=== PATIENT | female | born 1970 | race African-American/Black ===

== ENCOUNTER 2017-12-28 12:15 | Inpatient (IN) | payer BC ==
[~2017-12-28] VITALS: Ht 165.1 cm; Wt 72.5 kg
[2017-12-28] MEDS ORDERED: IOHEXOL 350 MG/ML 50 ML BTL (for RAD DIAG) IVCONTRAST ONE (12:16)
[2017-12-28 12:19] VITALS: BP 119/73; PULSE 84; RESP 18; TEMP 98.4; O2SAT 100
[2017-12-28 12:28] VITALS: BP 126/75; PULSE 81; RESP 16; O2SAT 99
[2017-12-28] MEDS ORDERED: OMEP20TA93 PO (12:32)
[2017-12-28] MEDS ORDERED: SODIUM CHLOR 0.9% 1000 ML INJ 1,000 ML IV SCH (12:41)
[2017-12-28] MEDS ORDERED: SODIUM CHLORIDE 0.9% FLUSH 10 ML FLUSH IV FLUSH PRN ×2 (12:45→17:15)
[2017-12-28] MEDS ORDERED: ONDANSETRON HCL 4 MG/2 ML VIAL IVP ONE (12:45)
[2017-12-28] MEDS ORDERED: FAMOTIDINE 20 MG/2 ML VIAL IV PUSH ONE (12:45)
[2017-12-28] MEDS ORDERED: MORPHINE SULFATE 4 MG/ML INJ IV PUSH ONE ×2 (12:45→22:30)
--- NOTE | 2017-12-28 12:46 | PD ---
HPI Chief Complaint: GI Complaint Time Seen by Provider: 12:22 Travel History International Travel<30 days: No Contact w/Intl Traveler<30days: No Traveled to known affect area: No History of Present Illness HPI The patient is a 47-year-old female who presents to the emergency department for abdominal pain. The patient states her abdominal pain started in August, is located epigastric to left upper quadrant, nonradiating, intermittent, and sharp. She does note nausea, vomiting, and 2 days ago started having green diarrhea. The patient does note a 60 pound weight loss over the last year and a half, initially was intentional, recently has been unintentional. She denies any history of previous abdominal surgeries. The patient states she has not had her menstrual cycle in approximately 15 years, but denies any known history of uterine ablation or hysterectomy. The patient denies any dysuria, frequency, or urgency. The patient does have a history of alcohol use, drinks several times a week, but denies any known history of pancreatitis. Symptoms are moderate. The patient does not currently have a primary physician. PFSH Past Medical History Asthma: Yes Diminished Hearing: No GERD: Yes Immunizations Current: Yes Tetanus Vaccination: Unknown Influenza Vaccination: No ?: Not Menopausal: Yes : 10 Para: 5 Miscarriage: 1 : 4 Past Surgical History Surgical History: No Previous Surgery Social History Alcohol Use: Yes Tobacco Use: No (quit ) Substance Use: Yes (Marijuana last use today ) Allergies-Medications (Allergen,Severity, Reaction): Coded Allergies: No Known Drug Allergies (Verified Allergy, Unknown, 12/28/17) Reported Meds & Prescriptions Reported Meds & Active Scripts Active Reported Omeprazole 20 Mg Tab 20 Mg PO DAILY Review of Systems Except as stated in HPI: all other systems reviewed are Neg General / Constitutional: No: Fever Cardiovascular: No: Chest Pain or Discomfort Respiratory: No: Shortness of Breath Gastrointestinal: Positive: Nausea, Vomiting, Diarrhea, Abdominal Pain Genitourinary: No: Dysuria, Discharge, Vaginal Bleeding Musculoskeletal: No: Myalgias Skin: No Rash Physical Exam Narrative GENERAL: Awake, alert, pleasant 47-year-old female who appears her stated age and is in no acute respiratory distress SKIN: Focused skin assessment warm/dry. HEAD: Atraumatic. Normocephalic. EYES: No injection or drainage. ENT: No nasal bleeding or discharge. Mucous membranes pink and moist. NECK: Trachea midline. No JVD. CARDIOVASCULAR: Regular rate and rhythm. No murmur appreciated. RESPIRATORY: No accessory muscle use. Clear to auscultation. Breath sounds equal bilaterally. GASTROINTESTINAL: Abdomen soft, tender palpation epigastrium and left upper quadrant. No guarding or rigidity. MUSCULOSKELETAL: No obvious deformities. No clubbing. No cyanosis. No edema. NEUROLOGICAL: Awake and alert. No obvious cranial nerve deficits. Motor grossly within normal limits. Normal speech. Nonfocal. PSYCHIATRIC: Appropriate mood and affect; insight and judgment normal. Data Data Last Documented VS Vital Signs Date Time Temp Pulse Resp B/P (MAP) Pulse Ox O2 Delivery O2 Flow Rate FiO2 12/28/17 12:28 81 16 126/75 (92) 99 Room Air 12/28/17 12:19 98.4 Orders Orders Complete Blood Count With Diff (12/28/17 12:41) Comprehensive Metabolic Panel (12/28/17 12:41) Lipase (12/28/17 12:41) Lactic Acid (12/28/17 12:41) Urinalysis - C+S If Indicated (12/28/17 12:41) Ct Abd/Pel W Iv Contrast(Rout) (12/28/17 12:41) Iv Access Insert/Monitor (12/28/17 12:41) Ecg Monitoring (12/28/17 12:41) Oximetry (12/28/17 12:41) Morphine Inj (Morphine Inj) (12/28/17 12:45) Ondansetron Inj (Zofran Inj) (12/28/17 12:45) Sodium Chlor 0.9% 1000 Ml Inj (Ns 1000 M (12/28/17 12:41) Sodium Chloride 0.9% Flush (Ns Flush) (12/28/17 12:45) Famotidine Inj (Pepcid Inj) (12/28/17 12:45) Ed Urine Pregnancytest Poc (12/28/17 12:41) Oral Contrast - Adult (12/28/17 12:47) Diatrizoate Liq ( Gastroview Liq) (12/28/17 13:06) Iohexol 350 Inj (Omnipaque 350 Inj) (12/28/17 12:16) Consult General Surgery (12/28/17 ) Admit Order (Ed Use Only) (12/28/17 ) Labs Laboratory Tests Test 12/28/17 13:05 12/28/17 13:07 12/28/17 14:45 White Blood Count 10.9 TH/MM3 Red Blood Count 4.57 MIL/MM3 Hemoglobin 14.1 GM/DL Hematocrit 41.9 % Mean Corpuscular Volume 91.8 FL Mean Corpuscular Hemoglobin 30.9 PG Mean Corpuscular Hemoglobin Concent 33.7 % Red Cell Distribution Width 13.5 % Platelet Count 202 TH/MM3 Mean Platelet Volume 9.6 FL Neutrophils (%) (Auto) 81.5 % Lymphocytes (%) (Auto) 11.9 % Monocytes (%) (Auto) 5.7 % Eosinophils (%) (Auto) 0.4 % Basophils (%) (Auto) 0.5 % Neutrophils # (Auto) 8.9 TH/MM3 Lymphocytes # (Auto) 1.3 TH/MM3 Monocytes # (Auto) 0.6 TH/MM3 Eosinophils # (Auto) 0.0 TH/MM3 Basophils # (Auto) 0.1 TH/MM3 CBC Comment DIFF FINAL Differential Comment Blood Urea Nitrogen 13 MG/DL Creatinine 0.79 MG/DL Random Glucose 95 MG/DL Total Protein 7.8 GM/DL Albumin 4.0 GM/DL Calcium Level 9.4 MG/DL Alkaline Phosphatase 69 U/L Aspartate Amino Transf (AST/SGOT) 23 U/L Alanine Aminotransferase (ALT/SGPT) 24 U/L Total Bilirubin 0.4 MG/DL Sodium Level 139 MEQ/L Potassium Level 4.2 MEQ/L Chloride Level 107 MEQ/L Carbon Dioxide Level 23.4 MEQ/L Anion Gap 9 MEQ/L Estimat Glomerular Filtration Rate 95 ML/MIN Lipase 116 U/L Lactic Acid Level 1.4 mmol/L Urine Color YELLOW Urine Turbidity CLEAR Urine pH 6.0 Urine Specific [place] 1.025 Urine Protein TRACE mg/dL Urine Glucose (UA) NEG mg/dL Urine Ketones 10 mg/dL Urine Occult Blood SMALL Urine Nitrite NEG Urine Bilirubin NEG Urine Urobilinogen LESS THAN 2.0 MG/DL Urine Leukocyte Esterase NEG Urine RBC 6 /hpf Urine WBC LESS THAN 1 /hpf Urine Squamous Epithelial Cells 2 /hpf Urine Mucus FEW /lpf Microscopic Urinalysis Comment CULT NOT INDICATED MDM Medical Decision Making Medical Screen Exam Complete: Yes Emergency Medical Condition: Yes Medical Record Reviewed: Yes Interpretation(s) Last Impressions Abdomen/Pelvis CT 12/28/17 1241 Signed Impressions: Service Date/Time: Thursday, December 28, 2017 15:14 - CONCLUSION: Probable early acute appendicitis. Recommend correlation with physical exam and laboratory values. Rob Amato MD Laboratory Tests Test 12/28/17 13:05 12/28/17 13:07 12/28/17 14:45 White Blood Count 10.9 TH/MM3 Red Blood Count 4.57 MIL/MM3 Hemoglobin 14.1 GM/DL Hematocrit 41.9 % Mean Corpuscular Volume 91.8 FL Mean Corpuscular Hemoglobin 30.9 PG Mean Corpuscular Hemoglobin Concent 33.7 % Red Cell Distribution Width 13.5 % Platelet Count 202 TH/MM3 Mean Platelet Volume 9.6 FL Neutrophils (%) (Auto) 81.5 % Lymphocytes (%) (Auto) 11.9 % Monocytes (%) (Auto) 5.7 % Eosinophils (%) (Auto) 0.4 % Basophils (%) (Auto) 0.5 % Neutrophils # (Auto) 8.9 TH/MM3 Lymphocytes # (Auto) 1.3 TH/MM3 Monocytes # (Auto) 0.6 TH/MM3 Eosinophils # (Auto) 0.0 TH/MM3 Basophils # (Auto) 0.1 TH/MM3 CBC Comment DIFF FINAL Differential Comment Blood Urea Nitrogen 13 MG/DL Creatinine 0.79 MG/DL Random Glucose 95 MG/DL Total Protein 7.8 GM/DL Albumin 4.0 GM/DL Calcium Level 9.4 MG/DL Alkaline Phosphatase 69 U/L Aspartate Amino Transf (AST/SGOT) 23 U/L Alanine Aminotransferase (ALT/SGPT) 24 U/L Total Bilirubin 0.4 MG/DL Sodium Level 139 MEQ/L Potassium Level 4.2 MEQ/L Chloride Level 107 MEQ/L Carbon Dioxide Level 23.4 MEQ/L Anion Gap 9 MEQ/L Estimat Glomerular Filtration Rate 95 ML/MIN Lipase 116 U/L Lactic Acid Level 1.4 mmol/L Urine Color YELLOW Urine Turbidity CLEAR Urine pH 6.0 Urine Specific [place] 1.025 Urine Protein TRACE mg/dL Urine Glucose (UA) NEG mg/dL Urine Ketones 10 mg/dL Urine Occult Blood SMALL Urine Nitrite NEG Urine Bilirubin NEG Urine Urobilinogen LESS THAN 2.0 MG/DL Urine Leukocyte Esterase NEG Urine RBC 6 /hpf Urine WBC LESS THAN 1 /hpf Urine Squamous Epithelial Cells 2 /hpf Urine Mucus FEW /lpf Microscopic Urinalysis Comment CULT NOT INDICATED Differential Diagnosis Differential diagnosis includes pancreatitis, SMA nutcracker syndrome, SMA insufficiency, ischemic colitis, gastritis, peptic ulcer disease, cancer. Narrative Course IV was established, labs are drawn and sent, and the patient was placed on cardiac telemetry monitoring and continuous pulse oximetry monitoring. The patient was administered morphine, Zofran, Pepcid, and IV fluids. CT of the abdomen and pelvis with IV and oral contrast was ordered. The patient's white count is unremarkable. Lactic acid is normal. However, the patient did vomit after drinking oral contrast. CT the abdomen and pelvis reveals possible early appendicitis. The patient's history is not consistent with appendicitis, however, the abdomen was reevaluated. She complains of pain in the left upper quadrant, however, is only tender to palpation right lower quadrant. Appears to be very atypical appendicitis if appendicitis at all. However, with constellation of symptoms and CT results, the on-call general surgeon was paged. I discussed the patient with Dr. Arita who evaluated the CT, does state the appendix is enlarged but there are no inflammatory changes. The patient's pain is not consistent with appendicitis, it appears chronic and associated with a 60 pound weight loss. The patient most likely would benefit from endoscopy and possibly colonoscopy. I discussed the patient with the on-call medical service who agrees with 23 hour observation. Physician Communication Physician Communication I discussed the patient with Dr. Piedra who agrees with 23 hour observation. Diagnosis Primary Impression: Abdominal pain Qualified Codes: R10.10 - Upper abdominal pain, unspecified Admitting Information Admitting Physician Requests: Observation Condition: Stable Reese Torres MD December 28, 2017 12:46
[2017-12-28] MEDS ORDERED: DIATRIZOATE MEGLUM/DIATRIZOATE SOD 9 ML CUP ONE (13:06)
[2017-12-28 13:15] LABS: AUTOMATED NEUTROPHIL # 8.9 TH/MM3 (1.8-7.7); BASOPHIL # 0.1 TH/MM3 (0-0.2); BASOPHIL % 0.5 % (0.0-2.0); EOSINOPHIL % 0.4 % (0.0-4.0); HEMATOCRIT 41.9 % (35.0-46.0); HEMOGLOBIN 14.1 GM/DL (11.6-15.3); LYMPH % 11.9 % (9.0-44.0); LYMPHOCYTE # 1.3 TH/MM3 (1.0-4.8); MEAN CELL VOLUME 91.8 FL (80.0-100.0); MEAN CORPUSCULAR HEMOGLOBIN 30.9 PG (27.0-34.0); MEAN CORPUSCULAR HGB CONC 33.7 % (32.0-36.0); MEAN PLATELET VOLUME 9.6 FL (7.0-11.0); MONO % 5.7 % (0.0-8.0); MONOCYTE # 0.6 TH/MM3 (0-0.9); NEUT % 81.5 % (16.0-70.0); PLATELET COUNT 202 TH/MM3 (150-450); RED BLOOD COUNT 4.57 MIL/MM3 (4.00-5.30); RED CELL DISTRIBUTION WIDTH 13.5 % (11.6-17.2); WHITE BLOOD COUNT 10.9 TH/MM3 (4.0-11.0)
[2017-12-28 13:34] LABS: ALKALINE PHOSPHATASE 69 U/L (45-117); ALT (GPT) 24 U/L (10-53); TOTAL BILIRUBIN ADULT 0.4 MG/DL (0.2-1.0); TOTAL PROTEIN 7.8 GM/DL (6.4-8.2)
[2017-12-28 13:42] LABS: AST (GOT) 23 U/L (15-37); BICARBONATE 23.4 MEQ/L (21.0-32.0); BLOOD UREA NITROGEN 13 MG/DL (7-18); CALCIUM 9.4 MG/DL (8.5-10.1); CHLORIDE 107 MEQ/L (98-107); CREATININE 0.79 MG/DL (0.50-1.00); GLOMERULAR FILTRATION RATE 95 ML/MIN (>89); GLUCOSE,RANDOM 95 MG/DL (74-106); SODIUM (NA) 139 MEQ/L (136-145)
--- NOTE | 2017-12-28 15:34 | RADRPT ---
EXAM DATE/TIME: 12/28/2017 15:14 [facility] COMPARISON: No previous studies available for comparison. INDICATIONS : Severe abdominal pain to left upper quadrant. IV CONTRAST: 94 cc Omnipaque 350 (iohexol) IV ORAL CONTRAST: Prescribed oral contrast ingested. RADIATION DOSE: 11.95 CTDIvol (mGy) MEDICAL HISTORY : asthma, gerd SURGICAL HISTORY : None. ENCOUNTER: Initial ACUITY: 1 day PAIN SCALE: 9/10 LOCATION: Left upper quadrant abdomen TECHNIQUE: Volumetric scanning of the abdomen and pelvis was performed. Using automated exposure control and ad justment of the mA and/or kV according to patient size, radiation dose was kept as low as reasonably achievable to obtain optimal diagnostic quality images. DICOM format image data is available electro nically for review and comparison. FINDINGS: LOWER LUNGS: The visualized lower lungs are clear. LIVER: Homogeneous density without lesion. There is no dilation of the biliary tree. No calcified gallston es. SPLEEN: Normal size without lesion. PANCREAS: Within normal limits. KIDNEYS: Normal in size and shape. There is no mass, stone or hydronephrosis. ADRENAL GLANDS: Within normal limits. VASCULAR: There is no aortic aneurysm. BOWEL/MESENTERY: The appendix is dilated at 1.3 cm. There is some thickening involving the wall the appendix with some mild inflammatory changes in the surrounding mesenteric fat. No free air is seen. No loculated fluid collections are demonstrated. No free fluid is seen. ABDOMINAL WALL: Within normal limits. RETROPERITONEUM: There is no lymphadenopathy. BLADDER: No wall thickening or mass. REPRODUCTIVE: Within normal limits. INGUINAL: There is no lymphadenopathy or hernia. MUSCULOSKELETAL: Within normal limits for patient age. CONCLUSION: Probable early acute appendicitis. Recommend correlation with physical exam and laboratory values. Rob Amato MD on December 28, 2017 at 15:28 Board Certified Radiologist. This report was verified electronically.
[2017-12-28 15:50] LABS: BILIRUBIN, URINE NEG (NEG); BLOOD, URINE SMALL (NEG); GLUCOSE,URINE NEG (NEG); KETONE, URINE 10 mg/dL (NEG); MUCUS URINE FEW /lpf (OCC); NITRITE,URINE NEG (NEG); SQUAMOUS EPITHELIAL CELL URINE 2 /hpf (0-5); URINE COLOR YELLOW (YELLW/STRAW); URINE LEUKOCYTE ESTERASE NEG (NEG)
[2017-12-28] MEDS ORDERED: ONDANSETRON HCL 4 MG/2 ML VIAL IVP PRN (17:15)
[2017-12-28] MEDS ORDERED: NALOXONE HCL 0.4 MG/ML AMP IV PUSH PRN (17:15)
[2017-12-28] MEDS ORDERED: ACETAMINOPHEN/HYDROcodone 325 MG/5 MG TAB PO PRN (17:15)
--- NOTE | 2017-12-28 17:24 | HHI.HP ---
[facility] No Primary Care Physician Admission Diagnosis Abdominal pain with 60 pound weight loss, nausea vomiting Diagnoses: (1) Abdominal pain Travel History International Travel<30 Days: No Contact w/Intl Traveler <30 Da: No Traveled to Known Affected Are: No History of Present Illness 47-year-old female with a 1.5 year history of recurrent abdominal pain. She states that the pain began early as episodic epigastric pain that was associated at times with eating. It progressed over the year to involve vomiting with meals occasionally. She has lost 60 pounds in the last year and a half due to poor eating habits. She denies any hematochezia but does state that she has episodic diarrhea. For the last 3 days she has noticed green stools and has been battling with nausea, vomiting, diarrhea and worsening abdominal pain. She has no known food allergies. She denies any fevers. Review of Systems Constitutional: DENIES: Diaphoretic episodes, Fatigue, Fever, Weight gain, Weight loss, Chills Endocrine: DENIES: Abnorml menstrual pattern Eyes: DENIES: Blurred vision, Eye inflammation, Eye pain, Vision loss, Photosensitivity Respiratory: DENIES: Apneas, Cough, Wheezing, Hemoptysis Cardiovascular: DENIES: Chest pain, Palpitations, Syncope, Dyspnea on Exertion , Lower Extremity Edema Gastrointestinal: COMPLAINS OF: Abdominal pain, Diarrhea, Nausea, Vomiting, DENIES: Black stools, Bloody stools, Constipation, Difficulty Swallowing Genitourinary: DENIES: Abnormal vaginal bleeding, Dysmenorrhea, Dyspareunia, Urinary frequency, Urinary incontinence, Urgency, Dysuria Neurologic: DENIES: Abnormal gait, Seizures, Poor Balance Psychiatric: DENIES: Anxiety, Confusion, Mood changes, Depression, Hallucinations, Agitation Past Family Social History Past Medical History Asthma Past Surgical History Denies any surgeries Allergies: Coded Allergies: No Known Drug Allergies (Verified Allergy, Unknown, 12/28/17) Family History Hypertension Social History Drinks 8 cans of beer twice weekly Denies cigarette use Occasional marijuana use Physical Exam Vital Signs Vital Signs Date Time Temp Pulse Resp B/P (MAP) Pulse Ox O2 Delivery O2 Flow Rate FiO2 12/28/17 12:28 81 16 126/75 (92) 99 Room Air 12/28/17 12:19 98.4 84 18 119/73 (88) 100 Physical Exam GENERAL: This is a well-nourished, well-developed patient, with some abdominal discomfort SKIN: No rashes, ecchymoses or lesions. Cool and dry. HEAD: Atraumatic. Normocephalic. No temporal or scalp tenderness. EYES: Pupils equal round and reactive. Extraocular motions intact. No scleral icterus. No injection or drainage. ENT: Nose without bleeding, purulent drainage or septal hematoma. Throat without erythema, tonsillar hypertrophy or exudate. Uvula midline. Airway patent. NECK: Trachea midline. No JVD or lymphadenopathy. Supple, nontender, no meningeal signs. CARDIOVASCULAR: Regular rate and rhythm without murmurs, gallops, or rubs. RESPIRATORY: Clear to auscultation. Breath sounds equal bilaterally. No wheezes , rales, or rhonchi. GASTROINTESTINAL: Abdomen soft, mild diffuse epigastric tenderness, nondistended. Negative Jackson's sign, no gallbladder tenderness, no palpable masses, no guarding. MUSCULOSKELETAL: Extremities without clubbing, cyanosis, or edema. No joint tenderness, effusion, or edema noted. No calf tenderness. Negative Homans sign bilaterally. NEUROLOGICAL: Awake and alert. Cranial nerves II through XII intact. Motor and sensory grossly within normal limits. Five out of 5 muscle strength in all muscle groups. Normal speech. Laboratory Laboratory Tests Test 12/28/17 13:05 12/28/17 13:07 12/28/17 14:45 White Blood Count 10.9 Red Blood Count 4.57 Hemoglobin 14.1 Hematocrit 41.9 Mean Corpuscular Volume 91.8 Mean Corpuscular Hemoglobin 30.9 Mean Corpuscular Hemoglobin Concent 33.7 Red Cell Distribution Width 13.5 Platelet Count 202 Mean Platelet Volume 9.6 Neutrophils (%) (Auto) 81.5 Lymphocytes (%) (Auto) 11.9 Monocytes (%) (Auto) 5.7 Eosinophils (%) (Auto) 0.4 Basophils (%) (Auto) 0.5 Neutrophils # (Auto) 8.9 Lymphocytes # (Auto) 1.3 Monocytes # (Auto) 0.6 Eosinophils # (Auto) 0.0 Basophils # (Auto) 0.1 CBC Comment DIFF FINAL Differential Comment Blood Urea Nitrogen 13 Creatinine 0.79 Random Glucose 95 Total Protein 7.8 Albumin 4.0 Calcium Level 9.4 Alkaline Phosphatase 69 Aspartate Amino Transf (AST/SGOT) 23 Alanine Aminotransferase (ALT/SGPT) 24 Total Bilirubin 0.4 Sodium Level 139 Potassium Level 4.2 Chloride Level 107 Carbon Dioxide Level 23.4 Anion Gap 9 Estimat Glomerular Filtration Rate 95 Lipase 116 Lactic Acid Level 1.4 Urine Color YELLOW Urine Turbidity CLEAR Urine pH 6.0 Urine Specific [place] 1.025 Urine Protein TRACE Urine Glucose (UA) NEG Urine Ketones 10 Urine Occult Blood SMALL Urine Nitrite NEG Urine Bilirubin NEG Urine Urobilinogen LESS THAN 2.0 Urine Leukocyte Esterase NEG Urine RBC 6 Urine WBC LESS THAN 1 Urine Squamous Epithelial Cells 2 Urine Mucus FEW Microscopic Urinalysis Comment CULT NOT INDICATED Result Diagram: 12/28/17 1305 12/28/17 1305 Caprini VTE Risk Assessment Caprini VTE Risk Assessment: Mod/High Risk (score >= 2) Caprini Risk Assessment Model Point Value = 1 Point Value = 2 Point Value = 3 Point Value = 5 Age 41-60 Minor surgery BMI > 25 kg/m2 Swollen legs Varicose veins or History of unexplained or recurrent spontaneous Oral contraceptives or hormone replacement Sepsis (< 1 month) Serious lung disease, including pneumonia (< 1 month) Abnormal pulmonary function Acute myocardial infarction Congestive heart failure (< 1 month) History of inflammatory bowel disease Medical patient at bed rest Age 61-74 Arthroscopic surgery Major open surgery (> 45 min) Laparoscopic surgery (> 45 min) Malignancy Confined to bed (> 72 hours) Immobilizing plaster cast Central venous access Age >= 75 History of VTE Family history of VTE Factor V Leiden Prothrombin [id number] Lupus anticoagulant Anticardiolipin antibodies Elevated serum homocysteine Heparin-induced thrombocytopenia Other congenital or acquired thrombophilia Stroke (< 1 month) Elective arthroplasty Hip, pelvis, or leg fracture Acute spinal cord injury (< 1 month) Prophylaxis Regimen Total Risk Factor Score Risk Level Prophylaxis Regimen 0-1 Low Early ambulation 2 Moderate Order ONE of the following: *Sequential Compression Device (SCD) *Heparin 5000 units SQ BID 3-4 Higher Order ONE of the following medications: *Heparin 5000 units SQ TID *Enoxaparin/Lovenox 40 mg SQ daily (WT < 150 kg, CrCl > 30 mL/min) *Enoxaparin/Lovenox 30 mg SQ daily (WT < 150 kg, CrCl > 10-29 mL/min) *Enoxaparin/Lovenox 30 mg SQ BID (WT < 150 kg, CrCl > 30 mL/min) AND/OR *Sequential Compression Device (SCD) 5 or more Highest Order ONE of the following medications: *Heparin 5000 units SQ TID (Preferred with Epidurals) *Enoxaparin/Lovenox 40 mg SQ daily (WT < 150 kg, CrCl > 30 mL/min) *Enoxaparin/Lovenox 30 mg SQ daily (WT < 150 kg, CrCl > 10-29 mL/min) *Enoxaparin/Lovenox 30 mg SQ BID (WT < 150 kg, CrCl > 30 mL/min) AND *Sequential Compression Device (SCD) Assessment and Plan Problem List: (1) Abdominal pain ICD Code: R10.9 - Unspecified abdominal pain Status: Acute Assessment and Plan Abdominal pain Epigastric in location, associated with 60 pounds of weight loss in the last 1.[address] shows "possible early appendicitis" Patient's history is more consistent with gastric causes such as gastritis, ulcer, gastroparesis, etc. Start pantoprazole IV We will keep patient on clear liquid diet until workup is complete Appreciate general surgery consult to assist with differential Appreciate gastroenterology consult h/o asthma Not a current issue, not a common issue for her Add supportive meds as needed DVT prophylaxis SCD hose until gastric bleeding is ruled out Physician Certification 2 Midnight Certification Type: Admission for Inpatient Services Order for Inpatient Services The services are ordered in accordance with Medicare regulations or non- Medicare payer requirements, as applicable. In the case of services not specified as inpatient-only, they are appropriately provided as inpatient services in accordance with the 2-midnight benchmark. Estimated LOS (days): 4 days is the estimated time the patient will need to remain in the hospital, assuming treatment plan goals are met and no additional complications. Post-Hospital Plan: Home Problem Qualifiers (1) Abdominal pain: Qualified Codes: R10.10 - Upper abdominal pain, unspecified Chad Rincon MD December 28, 2017 17:24
--- NOTE | 2017-12-28 19:38 | PD.CONS ---
HPI Service General Surgery Consult Requested By Dr. Torres Reason for Consult Possible appendicitis Primary Care Physician No Primary Care Physician History of Present Illness The patient is a 47-year-old female with a long-standing history of gastrointestinal symptoms who presents with worsening abdominal pain. She describes epigastric pain over the last couple of days worse with eating. She has had diarrhea for 3 days and vomiting today. He usually has firm stools and somewhat times has bright red blood. She has had a 60 pound unintentional weight loss. She had a reportedly negative colonoscopy 8-10 years ago. She has chronic reflux symptoms primarily of burning epigastric pain in the epigastric pain she has been having more recently is different than that. The epigastric pain also radiates to the left upper abdomen and is sharp. White blood count is 11 with normal lactic acid. CT of the abdomen and pelvis showed dilated appendix concerning for possible early appendicitis and fat-containing epigastric ventral hernia. Review of Systems Constitutional: COMPLAINS OF: Weight loss, Change in appetite, DENIES: Fever, Chills Eyes: DENIES: Eye inflammation, Eye pain Ears, nose, mouth, throat: DENIES: Nasal discharge, Oral lesions Respiratory: DENIES: Cough, Shortness of breath Cardiovascular: DENIES: Chest pain, Palpitations Gastrointestinal: COMPLAINS OF: Abdominal pain, Bloody stools, Diarrhea, Nausea , Vomiting Musculoskeletal: DENIES: Back pain, Neck pain Integumentary: DENIES: Pruritus, Rash Neurologic: DENIES: Paresthesias, Seizures Past Family Social History Past Medical History None Past Surgical History No previous surgeries Reported Medications Omeprazole [id number] Allergies: Coded Allergies: No Known Drug Allergies (Verified Allergy, Unknown, 12/28/17) Active Ordered Medications Current Medications Medications (Trade) Dose Ordered Sig/Pranav Route Start Time Stop Time Status Last Admin Sodium Chloride 1,000 ml @ 83 mls/hr Q12H3M IV 12/28/17 18:00 (NS Flush) 2 ml UNSCH PRN IV FLUSH 12/28/17 17:15 (NS Flush) 2 ml BID IV FLUSH 12/28/17 21:00 (Zofran Inj) 4 mg Q6H PRN IVP 12/28/17 17:15 (Narcan Inj) 0.4 mg UNSCH PRN IV PUSH 12/28/17 17:15 ([place] 5-325 Mg) 1 tab Q6H PRN PO 12/28/17 17:15 (Protonix Inj) 40 mg Q24H IV PUSH 12/28/17 18:00 Family History Noncontributory Social History 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 Drinks 6-8 beers twice a week. No tobacco use. Occasional marijuana use. Physical Exam Vital Signs Vital Signs Date Time Temp Pulse Resp B/P (MAP) Pulse Ox O2 Delivery O2 Flow Rate FiO2 12/28/17 12:28 81 16 126/75 (92) 99 Room Air 12/28/17 12:19 98.4 84 18 119/73 (88) 100 Physical Exam GENERAL: Awake and alert. No acute distress. Cooperative. HEAD: Normocephalic. Atraumatic. EYES: Pupils equal round and reactive to light bilaterally. No scleral icterus. ENT: Moist oral mucosa. NECK: Trachea midline. CHEST: Nonlabored breathing. No respiratory distress. CARDIOVASCULAR: Regular rate and rhythm. ABDOMEN: Soft. No rebound or guarding. MIld ttp RLQ. Mod ttp with mass epigastrium- not reducible. EXTREMITIES: No cyanosis or edema. SKIN: Warm, dry, nonjaundiced. Laboratory Laboratory Tests Test 12/28/17 13:05 12/28/17 13:07 12/28/17 14:45 White Blood Count 10.9 Red Blood Count 4.57 Hemoglobin 14.1 Hematocrit 41.9 Mean Corpuscular Volume 91.8 Mean Corpuscular Hemoglobin 30.9 Mean Corpuscular Hemoglobin Concent 33.7 Red Cell Distribution Width 13.5 Platelet Count 202 Mean Platelet Volume 9.6 Neutrophils (%) (Auto) 81.5 Lymphocytes (%) (Auto) 11.9 Monocytes (%) (Auto) 5.7 Eosinophils (%) (Auto) 0.4 Basophils (%) (Auto) 0.5 Neutrophils # (Auto) 8.9 Lymphocytes # (Auto) 1.3 Monocytes # (Auto) 0.6 Eosinophils # (Auto) 0.0 Basophils # (Auto) 0.1 CBC Comment DIFF FINAL Differential Comment Blood Urea Nitrogen 13 Creatinine 0.79 Random Glucose 95 Total Protein 7.8 Albumin 4.0 Calcium Level 9.4 Alkaline Phosphatase 69 Aspartate Amino Transf (AST/SGOT) 23 Alanine Aminotransferase (ALT/SGPT) 24 Total Bilirubin 0.4 Sodium Level 139 Potassium Level 4.2 Chloride Level 107 Carbon Dioxide Level 23.4 Anion Gap 9 Estimat Glomerular Filtration Rate 95 Lipase 116 Lactic Acid Level 1.4 Urine Color YELLOW Urine Turbidity CLEAR Urine pH 6.0 Urine Specific [place] 1.025 Urine Protein TRACE Urine Glucose (UA) NEG Urine Ketones 10 Urine Occult Blood SMALL Urine Nitrite NEG Urine Bilirubin NEG Urine Urobilinogen LESS THAN 2.0 Urine Leukocyte Esterase NEG Urine RBC 6 Urine WBC LESS THAN 1 Urine Squamous Epithelial Cells 2 Urine Mucus FEW Microscopic Urinalysis Comment CULT NOT INDICATED Result Diagram: 12/28/17 1305 12/28/17 1305 Imaging Last Impressions Abdomen/Pelvis CT 12/28/17 1241 Signed Impressions: Service Date/Time: Thursday, December 28, 2017 15:14 - CONCLUSION: Probable early acute appendicitis. Recommend correlation with physical exam and laboratory values. Rob Amato MD Assessment and Plan Assessment and Plan 47-year-old female with multitude of gastrointestinal symptoms. CT scan showed a dilated appendix although the rest of the evaluation does not seem consistent with appendicitis. Will repeat CBC and exam in the morning. I think that her new onset epigastric pain is related to this epigastric hernia incarcerated with fat. This can probably be addressed as an outpatient but we will discuss this further tomorrow. More concerning symptoms include her difficulty tolerating oral intake and significant weight loss. Gastroenterology has been consulted and endoscopic evaluation may be beneficial. True Arita MD December 28, 2017 19:38
[2017-12-28 20:00] VITALS: PULSE 60
[2017-12-28 21:00] VITALS: BP 130/77; PULSE 69; RESP 20; TEMP 98.3; O2SAT 97
[2017-12-28] MEDS: PANTOPRAZOLE SODIUM 40 MG VIAL IV PUSH SCH (21:12)
[2017-12-28] MEDS: SODIUM CHLORIDE 0.9% FLUSH 10 ML FLUSH IV FLUSH SCH (21:12)
[2017-12-28] MEDS: SODIUM CHLOR 0.9% 1000 ML INJ 1,000 ML IV SCH (21:24)
[2017-12-29] VITALS (8 sets, daily range): BP systolic 118–155; BP diastolic 66–83; PULSE 60–81; RESP 18–20; TEMP 97.9–99.1; O2SAT 95–99
[2017-12-29] MEDS ORDERED: SODIUM CHLORID 0.9% 500 ML IV PRN (04:45)
[2017-12-29] MEDS ORDERED: CHLORHEXIDINE GLUCONATE 2 % 1 PACK (2 CLOTHS) TOPICAL PRN (04:45)
[2017-12-29] MEDS ORDERED: INSULIN HUMAN REGULAR 1,000 UNITS/10 ML VIAL SQ PRN (04:45)
[2017-12-29] MEDS ORDERED: POVIDONE IODINE 5% (ANTISEPSIS KIT) 4 APPLICATIONS EACH NARE PRN (04:45)
[2017-12-29] MEDS ORDERED: METOPROLOL TARTRATE 25 MG TAB PO PRN (04:45)
[2017-12-29] MEDS ORDERED: LACTATED RINGER'S 1000 ML IV PRN (04:45)
[2017-12-29] MEDS: SODIUM CHLORIDE 0.9% FLUSH 10 ML FLUSH IV FLUSH SCH ×2 (08:20→19:50)
[2017-12-29] MEDS: SODIUM CHLOR 0.9% 1000 ML INJ 1,000 ML IV SCH ×2 (08:20→18:06)
--- NOTE | 2017-12-29 09:16 | PD.CONS ---
HPI History of Present Illness This is a 47 year old female who presentes with weight loss, abd pain. Yesterday she started having left quadrant pain that was severe. For 3 days she has been having nausea and loose nonbloody stools. Denies recent travel, use abx, fevers, sick contacts. She has lost 60 lbs in the last year and a half , citing decreased appetite. "I eat a few bites and then I just don't want it. " SHe has had prior episodes of black tarry stool and blood in the stool that resolved, none recently. She admits chronic constipation for which she takes prune juice. She had an EGD and colonoscopy in [place] a "long time ago" and says there were no abnormal findings. CT showed dilated appendix. Pt takes Aleve twice a day for years for back pain. (Verito Haddad) PFSH Past Medical History Asthma chronic back pain constipation depression Past Surgical History Denies any surgeries (Verito Haddad) Coded Allergies: No Known Drug Allergies (Verified Allergy, Unknown, 12/28/17) Family History Hypertension Social History twice a week she drinks 6 beers Denies cigarette use frequent marijuana, daily (Verito Haddad) Review of Systems Constitutional: COMPLAINS OF: Weight loss, DENIES: Fever Endocrine: DENIES: Polydipsia Eyes: DENIES: Blurred vision Ears, nose, mouth, throat: DENIES: Hearing loss Respiratory: DENIES: Cough Cardiovascular: DENIES: Chest pain Gastrointestinal: COMPLAINS OF: Abdominal pain, Constipation, Diarrhea, Nausea , Anorexia, DENIES: Black stools, Bloody stools, Vomiting Genitourinary: DENIES: Hematuria Musculoskeletal: COMPLAINS OF: Back pain, DENIES: Joint Swelling Integumentary: DENIES: Abnormal pigmentation Hematologic/lymphatic: DENIES: Bruising Immunologic/allergic: DENIES: Eczema Neurologic: DENIES: Abnormal gait Psychiatric: DENIES: Confusion (Verito Haddad) GI Exam Vitals I&O Vital Signs Date Time Temp Pulse Resp B/P (MAP) Pulse Ox O2 Delivery O2 Flow Rate FiO2 12/29/17 08:20 98.2 81 20 155/72 (99) 98 12/29/17 04:04 97.9 66 18 118/71 (87) 96 12/29/17 04:00 68 12/29/17 00:00 98.3 65 18 120/66 (84) 99 12/29/17 00:00 60 12/28/17 21:00 98.3 69 20 130/77 (94) 97 12/28/17 20:00 60 12/28/17 12:28 81 16 126/75 (92) 99 Room Air 12/28/17 12:19 98.4 84 18 119/73 (88) 100 I/O 12/28/17 12/28/17 12/28/17 12/29/17 12/29/17 12/29/17 07:00 15:00 23:00 07:00 15:00 23:00 Output Total 250 ml Balance -250 ml Emesis 250 ml # Voids 1 3 Imaging Last Impressions Abdomen/Pelvis CT 12/28/17 1241 Signed Impressions: Service Date/Time: Thursday, December 28, 2017 15:14 - CONCLUSION: Probable early acute appendicitis. Recommend correlation with physical exam and laboratory values. Rob Amato MD Laboratory Test 12/28/17 13:05 12/28/17 13:07 12/28/17 14:45 White Blood Count 10.9 TH/MM3 Red Blood Count 4.57 MIL/MM3 Hemoglobin 14.1 GM/DL Hematocrit 41.9 % Mean Corpuscular Volume 91.8 FL Mean Corpuscular Hemoglobin 30.9 PG Mean Corpuscular Hemoglobin Concent 33.7 % Red Cell Distribution Width 13.5 % Platelet Count 202 TH/MM3 Mean Platelet Volume 9.6 FL Neutrophils (%) (Auto) 81.5 % Lymphocytes (%) (Auto) 11.9 % Monocytes (%) (Auto) 5.7 % Eosinophils (%) (Auto) 0.4 % Basophils (%) (Auto) 0.5 % Neutrophils # (Auto) 8.9 TH/MM3 Lymphocytes # (Auto) 1.3 TH/MM3 Monocytes # (Auto) 0.6 TH/MM3 Eosinophils # (Auto) 0.0 TH/MM3 Basophils # (Auto) 0.1 TH/MM3 CBC Comment DIFF FINAL Differential Comment Blood Urea Nitrogen 13 MG/DL Creatinine 0.79 MG/DL Random Glucose 95 MG/DL Total Protein 7.8 GM/DL Albumin 4.0 GM/DL Calcium Level 9.4 MG/DL Alkaline Phosphatase 69 U/L Aspartate Amino Transf (AST/SGOT) 23 U/L Alanine Aminotransferase (ALT/SGPT) 24 U/L Total Bilirubin 0.4 MG/DL Sodium Level 139 MEQ/L Potassium Level 4.2 MEQ/L Chloride Level 107 MEQ/L Carbon Dioxide Level 23.4 MEQ/L Anion Gap 9 MEQ/L Estimat Glomerular Filtration Rate 95 ML/MIN Lipase 116 U/L Lactic Acid Level 1.4 mmol/L Urine Color YELLOW Urine Turbidity CLEAR Urine pH 6.0 Urine Specific [place] 1.025 Urine Protein TRACE mg/dL Urine Glucose (UA) NEG mg/dL Urine Ketones 10 mg/dL Urine Occult Blood SMALL Urine Nitrite NEG Urine Bilirubin NEG Urine Urobilinogen LESS THAN 2.0 MG/DL Urine Leukocyte Esterase NEG Urine RBC 6 /hpf Urine WBC LESS THAN 1 /hpf Urine Squamous Epithelial Cells 2 /hpf Urine Mucus FEW /lpf Microscopic Urinalysis Comment CULT NOT INDICATED Physical Examination HEENT: PERRL; normocephalic; atraumatic; no jaundice. CHEST: CTA CARDIAC: RRR ABDOMEN: Soft, nondistended, LUQ TTP; no hepatosplenomegaly; bowel sounds are present in all four quadrants. EXTREMITIES: No clubbing, cyanosis, or edema. SKIN: Normal; no rash; no jaundice. 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 (Verito Haddad) Assessment and Plan Plan ASSESSMENT - left quadrant pain, nausea, loose stool, weight loss, decreased appetite - unclear etiology, could be gastritis or ulcer. CTshowed dilated appendix. pt is having left quadrant pain and WBC at this time is WNL. labs unremarkable she takes frequent NSAIDs. she has had prior episodes black tarry stool and mary blood in stool that resolved. PLAN - EGD today - NPO - consent obtained - stool studies - monitor labs - notify GI of active bleeding - further recs to follow pt seen by myself and Dr Medina and this note is on his behalf (Verito Haddad) Plan Patient was seen and examined, agree with above note, nausea vomiting decreased appetite, we will plan on doing upper endoscopy today to rule out any upper GI source or reason (Pillo Medina MD) Verito Haddad December 29, 2017 09:16 Pillo Medina MD December 29, 2017 11:08
[2017-12-29 09:44] LABS: AUTOMATED NEUTROPHIL # 7.7 TH/MM3 (1.8-7.7); BASOPHIL # 0.1 TH/MM3 (0-0.2); BASOPHIL % 0.7 % (0.0-2.0); EOSINOPHIL % 0.3 % (0.0-4.0); HEMATOCRIT 38.8 % (35.0-46.0); HEMOGLOBIN 13.1 GM/DL (11.6-15.3); LYMPH % 18.8 % (9.0-44.0); LYMPHOCYTE # 1.9 TH/MM3 (1.0-4.8); MEAN CELL VOLUME 90.5 FL (80.0-100.0); MEAN CORPUSCULAR HEMOGLOBIN 30.5 PG (27.0-34.0); MEAN CORPUSCULAR HGB CONC 33.8 % (32.0-36.0); MEAN PLATELET VOLUME 9.8 FL (7.0-11.0); MONO % 5.6 % (0.0-8.0); MONOCYTE # 0.6 TH/MM3 (0-0.9); NEUT % 74.6 % (16.0-70.0); PLATELET COUNT 186 TH/MM3 (150-450); RED BLOOD COUNT 4.28 MIL/MM3 (4.00-5.30); RED CELL DISTRIBUTION WIDTH 13.5 % (11.6-17.2); WHITE BLOOD COUNT 10.3 TH/MM3 (4.0-11.0)
[2017-12-29 10:16] LABS: BICARBONATE 24.5 MEQ/L (21.0-32.0); CALCIUM 9.1 MG/DL (8.5-10.1); CREATININE 0.77 MG/DL (0.50-1.00)
--- NOTE | 2017-12-29 11:23 | PD.PROCEDR ---
GI Procedure PROCEDURE PERFORMED Upper endoscopy with biopsy INDICATION FOR PROCEDURE Abdominal pain and nausea PROCEDURE: The procedure, risks and benefits were discussed with Ms. Lin and informed consent was obtained. Anesthesia sedated her with Diprivan. She was placed in the left lateral decubitus position. EGD: The Pentax videoscope was introduced through the oropharynx and advanced to the second portion of the duodenum under direct visualization. Retroflexion was performed in the stomach. Biopsy from the antrum to rule out H. pylori ESTIMATED BLOOD LOSS: None SPECIMENS REMOVED: None COMPLICATIONS: None IMPRESSION: Esophagus normal Minimal redness of the stomach biopsy to rule out H. pylori from the antrum Duodenum normal No actual reason for the patient abdominal pain on this procedure this could be related to gastroenteritis, she is being followed by Dr. Arita for suspected appendicitis PLAN: Clear liquids advance as tolerated if okay with Dr. Arita Follow-up biopsy If patient starts having any other symptoms may consider colonoscopy If tolerated diet and symptoms subside patient can be discharged from GI stand Pillo Medina MD December 29, 2017 11:23
--- NOTE | 2017-12-29 11:24 | HHI.GIFU ---
Subjective Remarks Patient seems to be better less abdominal pain less nausea more comfortable had upper endoscopy today Objective Vitals I&O Vital Signs Date Time Temp Pulse Resp B/P (MAP) Pulse Ox O2 Delivery O2 Flow Rate FiO2 12/29/17 09:44 63 12/29/17 08:20 98.2 81 20 155/72 (99) 98 12/29/17 04:04 97.9 66 18 118/71 (87) 96 12/29/17 04:00 68 12/29/17 00:00 98.3 65 18 120/66 (84) 99 12/29/17 00:00 60 12/28/17 21:00 98.3 69 20 130/77 (94) 97 12/28/17 20:00 60 12/28/17 12:28 81 16 126/75 (92) 99 Room Air 12/28/17 12:19 98.4 84 18 119/73 (88) 100 I/O 12/28/17 12/28/17 12/28/17 12/29/17 12/29/17 12/29/17 07:00 15:00 23:00 07:00 15:00 23:00 Output Total 250 ml Balance -250 ml Emesis 250 ml # Voids 1 3 Laboratory Laboratory Tests Test 12/28/17 13:05 12/28/17 13:07 12/28/17 14:45 12/29/17 08:55 White Blood Count 10.9 10.3 Red Blood Count 4.57 4.28 Hemoglobin 14.1 13.1 Hematocrit 41.9 38.8 Mean Corpuscular Volume 91.8 90.5 Mean Corpuscular Hemoglobin 30.9 30.5 Mean Corpuscular Hemoglobin Concent 33.7 33.8 Red Cell Distribution Width 13.5 13.5 Platelet Count 202 186 Mean Platelet Volume 9.6 9.8 Neutrophils (%) (Auto) 81.5 74.6 Lymphocytes (%) (Auto) 11.9 18.8 Monocytes (%) (Auto) 5.7 5.6 Eosinophils (%) (Auto) 0.4 0.3 Basophils (%) (Auto) 0.5 0.7 Neutrophils # (Auto) 8.9 7.7 Lymphocytes # (Auto) 1.3 1.9 Monocytes # (Auto) 0.6 0.6 Eosinophils # (Auto) 0.0 0.0 Basophils # (Auto) 0.1 0.1 CBC Comment DIFF FINAL DIFF FINAL Differential Comment Blood Urea Nitrogen 13 7 Creatinine 0.79 0.77 Random Glucose 95 73 Total Protein 7.8 Albumin 4.0 Calcium Level 9.4 9.1 Alkaline Phosphatase 69 Aspartate Amino Transf (AST/SGOT) 23 Alanine Aminotransferase (ALT/SGPT) 24 Total Bilirubin 0.4 Sodium Level 139 140 Potassium Level 4.2 3.5 Chloride Level 107 107 Carbon Dioxide Level 23.4 24.5 Anion Gap 9 9 Estimat Glomerular Filtration Rate 95 98 Lipase 116 Lactic Acid Level 1.4 Urine Color YELLOW Urine Turbidity CLEAR Urine pH 6.0 Urine Specific [place] 1.025 Urine Protein TRACE Urine Glucose (UA) NEG Urine Ketones 10 Urine Occult Blood SMALL Urine Nitrite NEG Urine Bilirubin NEG Urine Urobilinogen LESS THAN 2.0 Urine Leukocyte Esterase NEG Urine RBC 6 Urine WBC LESS THAN 1 Urine Squamous Epithelial Cells 2 Urine Mucus FEW Microscopic Urinalysis Comment CULT NOT INDICATED Physical Exam HEENT: Pupils round and reactive to light; normocephalic; atraumatic; no jaundice. Throat is clear. NECK: Neck is supple, no JVD, no lymphadenopathy. CHEST: Chest is clear to auscultation and percussion. CARDIAC: Regular rate and rhythm with no murmur gallop or rubs. ABDOMEN: Soft, nondistended, minimal diffuse tenderness; no hepatosplenomegaly ; bowel sounds are present in all four quadrants. EXTREMITIES: No clubbing, cyanosis, or edema. SKIN: Normal; no rash; no jaundice. 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 Assessment and Plan Plan Patient was seen and examined, nausea vomiting improving , she had decreased appetite, CT scan did not show any sign of pancreatitis , liver enzymes are normal upper endoscopy was done IMPRESSION: Esophagus normal Minimal redness of the stomach biopsy to rule out H. pylori from the antrum Duodenum normal No actual reason for the patient abdominal pain on this procedure this could be related to gastroenteritis, she is being followed by Dr. Arita for suspected appendicitis PLAN: Clear liquids advance as tolerated if okay with Dr. Arita Follow-up biopsy If patient starts having any other symptoms may consider colonoscopy If tolerated diet and symptoms subside patient can be discharged from GI stand Pillo Medina MD December 29, 2017 11:24
[2017-12-29] MEDS ORDERED: LIDOCAINE HCL 1% PF 5 ML SYRINGE OTHER ONE (12:00)
[2017-12-29] MEDS ORDERED: PROPOFOL 200 MG/20 ML AMP IV ONE (12:00)
--- NOTE | 2017-12-29 12:51 | HHI.PR ---
Subjective Subjective Notes Still with epigastric and LUQ pain, slightly better. EGD basically unremarkable. No RLQ pain. Objective Vitals/I&O Vital Signs Date Time Temp Pulse Resp B/P (MAP) Pulse Ox O2 Delivery O2 Flow Rate FiO2 12/29/17 12:19 98.0 71 20 147/83 (104) 95 12/28/17 12:28 Room Air Labs Laboratory Tests Test 12/28/17 13:05 12/28/17 13:07 12/28/17 14:45 12/29/17 08:55 White Blood Count 10.9 10.3 Red Blood Count 4.57 4.28 Hemoglobin 14.1 13.1 Hematocrit 41.9 38.8 Mean Corpuscular Volume 91.8 90.5 Mean Corpuscular Hemoglobin 30.9 30.5 Mean Corpuscular Hemoglobin Concent 33.7 33.8 Red Cell Distribution Width 13.5 13.5 Platelet Count 202 186 Mean Platelet Volume 9.6 9.8 Neutrophils (%) (Auto) 81.5 74.6 Lymphocytes (%) (Auto) 11.9 18.8 Monocytes (%) (Auto) 5.7 5.6 Eosinophils (%) (Auto) 0.4 0.3 Basophils (%) (Auto) 0.5 0.7 Neutrophils # (Auto) 8.9 7.7 Lymphocytes # (Auto) 1.3 1.9 Monocytes # (Auto) 0.6 0.6 Eosinophils # (Auto) 0.0 0.0 Basophils # (Auto) 0.1 0.1 CBC Comment DIFF FINAL DIFF FINAL Differential Comment Blood Urea Nitrogen 13 7 Creatinine 0.79 0.77 Random Glucose 95 73 Total Protein 7.8 Albumin 4.0 Calcium Level 9.4 9.1 Alkaline Phosphatase 69 Aspartate Amino Transf (AST/SGOT) 23 Alanine Aminotransferase (ALT/SGPT) 24 Total Bilirubin 0.4 Sodium Level 139 140 Potassium Level 4.2 3.5 Chloride Level 107 107 Carbon Dioxide Level 23.4 24.5 Anion Gap 9 9 Estimat Glomerular Filtration Rate 95 98 Lipase 116 Lactic Acid Level 1.4 Urine Color YELLOW Urine Turbidity CLEAR Urine pH 6.0 Urine Specific [place] 1.025 Urine Protein TRACE Urine Glucose (UA) NEG Urine Ketones 10 Urine Occult Blood SMALL Urine Nitrite NEG Urine Bilirubin NEG Urine Urobilinogen LESS THAN 2.0 Urine Leukocyte Esterase NEG Urine RBC 6 Urine WBC LESS THAN 1 Urine Squamous Epithelial Cells 2 Urine Mucus FEW Microscopic Urinalysis Comment CULT NOT INDICATED Radiology Last Impressions Abdomen/Pelvis CT 12/28/17 1241 Signed Impressions: Service Date/Time: Thursday, December 28, 2017 15:14 - CONCLUSION: Probable early acute appendicitis. Recommend correlation with physical exam and laboratory values. Rob Amato MD Narrative Exam NAD Abd: RLQ completely nontender. Fat incarcerated tender epigastric hernia. Mild LUQ ttp. Mild bloating. A/P Assessment and Plan 47 yo F abdominal pain- EGD unremarkable. Pain is related to epigastric hernia incarcerated with fat. I have discussed this in detail with her and I will see her in office Tuesday to plan outpatient ventral hernia repair. She is in agreement. No evidence of acute appendicitis at this time. Will start regular diet. Clear for discharge from my standpoint if tolerates diet. True Arita MD December 29, 2017 12:51
[2017-12-29] MEDS ORDERED: DO NOT ADM ANY ANTICOAGULANT DRUGS PRN (13:00)
[2017-12-29] MEDS: MORPHINE SULFATE 4 MG/ML INJ IV PUSH PRN ×4 (13:12→23:24)
--- NOTE | 2017-12-29 17:27 | HHI.PR ---
Subjective Remarks Patient underwent EGD this morning. Results were unremarkable. She complains of ongoing abdominal pain and difficulty with eating, causing exacerbation of pain. Objective Vitals Vital Signs Date Time Temp Pulse Resp B/P (MAP) Pulse Ox O2 Delivery O2 Flow Rate FiO2 12/29/17 16:29 99.1 74 20 133/66 (88) 97 12/29/17 12:19 98.0 71 20 147/83 (104) 95 12/29/17 11:32 97.5 86 18 121/74 (90) 99 12/29/17 09:44 63 12/29/17 08:20 98.2 81 20 155/72 (99) 98 12/29/17 04:04 97.9 66 18 118/71 (87) 96 12/29/17 04:00 68 12/29/17 00:00 98.3 65 18 120/66 (84) 99 12/29/17 00:00 60 12/28/17 21:00 98.3 69 20 130/77 (94) 97 12/28/17 20:00 60 I/O 12/28/17 12/28/17 12/28/17 12/29/17 12/29/17 12/29/17 07:00 15:00 23:00 07:00 15:00 23:00 Intake Total 300 ml 720 ml Output Total 250 ml Balance -250 ml 300 ml 720 ml Intake Oral 720 ml Other 300 ml Emesis 250 ml # Voids 1 3 3 # Bowel Movements 0 Result Diagram: 12/29/17 0855 12/29/17 0855 Objective Remarks GENERAL: Well-nourished, well-developed patient. SKIN: Warm and dry. HEAD: Normocephalic. EYES: No scleral icterus. No injection or drainage. NECK: Supple, trachea midline. No JVD or lymphadenopathy. CARDIOVASCULAR: Regular rate and rhythm without murmurs, gallops, or rubs. RESPIRATORY: Breath sounds equal bilaterally. No accessory muscle use. GASTROINTESTINAL: Diffuse epigastric tenderness to palpation, mild bloating, not acute EXTREMITIES: No cyanosis, or edema. NEUROLOGICAL: Awake, alert, and oriented x 3. Non-focal. A/P Problem List: (1) Abdominal pain ICD Code: R10.9 - Unspecified abdominal pain Status: Acute Assessment and Plan Abdominal pain Epigastric in location, associated with 60 pounds of weight loss in the last 1.[address] shows "possible early appendicitis", but general surgery evaluation is negative for appendicitis EGD showed no gastritis and no ulceration, overall negative Continue pantoprazole IV Patient does not want to advance her diet due to pain Gastric emptying study ordered to rule out gastroparesis Appreciate general surgery consult Appreciate gastroenterology consult h/o asthma Stable, no issues DVT prophylaxis SCD hose until gastric bleeding is ruled out Discharge planning Patient's abdominal pain is still not under control or explained Patient undergoing gastric emptying study in the morning to rule out gastroparesis as a cause of her pain Problem Qualifiers (1) Abdominal pain: Qualified Codes: R10.10 - Upper abdominal pain, unspecified Chad Rincon MD December 29, 2017 17:27
[2017-12-29] MEDS: PANTOPRAZOLE SODIUM 40 MG VIAL IV PUSH SCH (18:00)
[2017-12-30] VITALS (7 sets, daily range): BP systolic 122–130; BP diastolic 68–79; PULSE 54–77; RESP 18; TEMP 97.6–98.1; O2SAT 97–98
[2017-12-30] MEDS: SODIUM CHLOR 0.9% 1000 ML INJ 1,000 ML IV SCH ×2 (06:09→08:34)
[2017-12-30] MEDS: SODIUM CHLORIDE 0.9% FLUSH 10 ML FLUSH IV FLUSH SCH (08:01)
[2017-12-30] MEDS ORDERED: METOCLOPRAMIDE HCL 10 MG/2 ML VIAL ONE (11:02)
--- NOTE | 2017-12-30 11:54 | RADRPT ---
EXAM DATE/TIME: 12/30/2017 09:17 [facility] COMPARISON: No previous studies available for comparison. INDICATIONS : Abdominal pain with nausea and vomiting. DOSE: 1.0 mCi Tc99m Sulfur Colloid Labeled Whole egg PO MEDICATONS: 1.) 5 mg Reglan IV at 90 minutes IMAGIN hrs MEDICAL HISTORY : Asthma. SURGICAL HISTORY : None. ENCOUNTER: Initial ACUITY: 3 days PAIN SCALE: 6/10 LOCATION: Abdomen. TECHNIQUE: Following the oral ingestion of radiotracer-labeled meal, dynamic sequential images in the MART[employer]NE[employer] projec tion were acquired with simultaneous computer acquisition. The data set was decay-corrected. FINDINGS: LAG PHASE: There is 10 minutes before onset of gastric emptying. There is poor esophageal transit EMPTYING: Gastric emptying kinetics are linear. The decay-corrected, back-extrapolated half-time of emptying i s 45 minutes. (Normal for this lab is 45- 90 minutes.) INTERVENTION: No response CONCLUSION: Poor esophageal transit with normal gastric emptying. Colby Ortega MD FACR on December 30, 2017 at 11:51 Board Certified Radiologist. This report was verified electronically.
--- NOTE | 2017-12-30 13:55 | HHI.GIFU ---
Subjective Remarks Patient is sitting straight up in the bed eating regular food, which is lasagna and salad. States her appetite is improving Still complains of some mild left upper quadrant pain and occasional gastric discomfort Afebrile No BM since admission day 2 (Raisa Callejas) Objective Vitals I&O Vital Signs Date Time Temp Pulse Resp B/P (MAP) Pulse Ox O2 Delivery O2 Flow Rate FiO2 12/30/17 12:00 97.9 60 18 130/76 (94) 98 12/30/17 09:31 54 12/30/17 08:00 98.1 60 18 127/77 (94) 98 12/30/17 04:00 98.1 59 18 129/79 (96) 98 12/30/17 00:00 65 12/30/17 00:00 97.6 77 18 128/78 (95) 98 12/29/17 20:00 66 12/29/17 20:00 98.3 76 18 142/72 (95) 95 12/29/17 16:29 99.1 74 20 133/66 (88) 97 I/O 12/29/17 12/29/17 12/29/17 12/30/17 12/30/17 12/30/17 07:00 15:00 23:00 07:00 15:00 23:00 Intake Total 300 ml 720 ml 280 ml Balance 300 ml 720 ml 280 ml Intake Oral 720 ml 280 ml Other 300 ml # Voids 3 3 2 # Bowel Movements 0 0 Imaging Last Impressions Gastric Emptying Nuclear Medicine 12/30/17 0000 Signed Impressions: Service Date/Time: Saturday, December 30, 2017 09:17 - CONCLUSION: Poor esophageal transit with normal gastric emptying. Colby Ortega MD FACR Abdomen/Pelvis CT 12/28/17 1241 Signed Impressions: Service Date/Time: Thursday, December 28, 2017 15:14 - CONCLUSION: Probable early acute appendicitis. Recommend correlation with physical exam and laboratory values. Rob Amato MD Physical Exam HEENT: normocephalic; atraumatic; speech clear, mild obesity NECK: Neck is supple, CHEST: Chest is clear no obvious shortness of breath CARDIAC: Regular rate and rhythm ABDOMEN: Soft, nondistended, left upper quadrant discomfort with some mild tenderness to light palpation, no nausea no vomiting, bowel sounds are present in all four quadrants. EXTREMITIES: No lower extremity edema. SKIN: Normal; mucous membranes pink IN SERVICE EDUCATOR: No focal deficits; alert and oriented times three. (Raisa Callejas) Assessment and Plan Plan Assessment/history left quadrant pain, nausea, loose stool, weight loss, decreased appetite - unclear etiology, could be gastritis or ulcer. CTshowed dilated appendix. pt is having left quadrant pain and WBC at this time is WNL. labs unremarkable she takes frequent NSAIDs. she has had prior episodes black tarry stool and mary blood in stool that resolved. EGD done on 12/29/2017 findings include esophagus normal, duodenum normal Minimal redness of the stomach biopsy to rule out H. pylori from the antrum Initial CT noted possible acute appendicitis No actual reason for the patient abdominal pain on this procedure this could be related to gastroenteritis, she is being followed by Dr. Arita for suspected appendicitis 12/30/2017 patient just finished gastric emptying scan which showed poor esophageal transit with normal gastric emptying. Patient is sitting up in the room eating regular food which includes lasagna. States that she still has some mild left upper quadrant pain and some mild gastric discomfort off and on. Encourage patient to chew her food very slowly and use hydration during her eating. PLAN: Diet regular food, appears to be tolerating fairly well, no obvious nausea or vomiting biopsy pending If patient starts having any other symptoms may consider colonoscopy Avoid NSAIDs Antiemetics Monitor labs Patient can discharge from a GI standpoint Patient was seen per myself and Dr. Medina, note was written on his behalf (Raisa Callejas) Plan Agree with above note, patient is doing better, no significant bleeding, patient is being discharged will (Pillo Medina MD) Raisa Callejas December 30, 2017 13:55 Pillo Medina MD December 30, 2017 22:58
[2017-12-30] MEDS ORDERED: PROT40TA PO (15:17)
[2017-12-30] MEDS ORDERED: DILT60TA PO (15:17)
--- NOTE | 2017-12-30 15:21 | HHI.DS ---
Discharge Summary Admission Date December 28, 2017 at 17:10 Discharge Date: December 30, 2017 Admitting Diagnosis Abdominal pain with 60 pound weight loss, nausea vomiting (1) Esophageal dysfunction ICD Code: K22.4 - Dyskinesia of esophagus (2) Abdominal pain ICD Code: R10.9 - Unspecified abdominal pain Status: Acute Procedures EGD 12/29/17 Brief History - From Admission 47-year-old female with a 1.5 year history of recurrent abdominal pain. She states that the pain began early as episodic epigastric pain that was associated at times with eating. It progressed over the year to involve vomiting with meals occasionally. She has lost 60 pounds in the last year and a half due to poor eating habits. She denies any hematochezia but does state that she has episodic diarrhea. For the last 3 days she has noticed green stools and has been battling with nausea, vomiting, diarrhea and worsening abdominal pain. She has no known food allergies. She denies any fevers. CBC/BMP: 12/29/17 0855 12/29/17 0855 Significant Findings Laboratory Tests Test 12/28/17 13:05 12/28/17 13:07 12/28/17 14:45 12/29/17 08:55 Neutrophils (%) (Auto) 81.5 % (16.0-70.0) 74.6 % (16.0-70.0) Neutrophils # (Auto) 8.9 TH/MM3 (1.8-7.7) Urine Ketones 10 mg/dL (NEG) Urine Occult Blood SMALL (NEG) Urine RBC 6 /hpf (0-3) Urine Mucus FEW /lpf (OCC) Random Glucose 73 MG/DL (74-106) PE at Discharge GENERAL: Well-nourished, well-developed patient. SKIN: Warm and dry. HEAD: Normocephalic. EYES: No scleral icterus. No injection or drainage. NECK: Supple, trachea midline. No JVD or lymphadenopathy. CARDIOVASCULAR: Regular rate and rhythm without murmurs, gallops, or rubs. RESPIRATORY: Breath sounds equal bilaterally. No accessory muscle use. GASTROINTESTINAL: Diffuse epigastric tenderness to palpation, mild bloating, not acute EXTREMITIES: No cyanosis, or edema. NEUROLOGICAL: Awake, alert, and oriented x 3. Non-focal. Hospital Course 47-year-old female with chronic epigastric pain presented to the ER with overall worsening over the last week. CT showed slight thickening of the appendix, but when evaluated by surgery her appendix exam was benign. All labs were normal and she had no other signs of appendicitis. Gastroenterology performed an EGD yesterday which showed normal tissue, no ulcers, no gastritis. Gastric emptying study was completed this morning and the report shows that she has poor esophageal motility normal gastric emptying. The most common cause of poor esophageal motility is esophageal spasms. I question her further and she reports that there are times when she gets pain even with swallowing water. We agreed that she is safe for transition to outpatient treatment and follow-up. I am going to place her on a trial of diltiazem to reduce incidence of esophageal spasm and I have asked her to follow-up with gastroenterology in 2 weeks for further workup if our original treatment plan does not work. She is stable for discharge today. Pt Condition on Discharge: Good Discharge Disposition: Discharge Home Discharge Time: <= 30 minutes Discharge Instructions DIET: Follow Instructions for: As Tolerated, No Restrictions Activities you can perform: Regular-No Restrictions Chad Rincon MD December 30, 2017 15:21
== END 2017-12-30 17:48 | disposition home or self-care (01) | DRG 392 ==
LOC: NEPD 12:15 → NEDA 16:29 → OBSVTOIN 17:10 → N05A 18:15
PROVIDERS: ADMIT Family Medicine; ATTEND Family Medicine
PROC: 0DB78ZX Excision of Stomach, Pylorus, Via Natural or Artificial Opening Endoscopic, Diagnostic (ICD-10-PCS; principal; 2017-12-29 11:08)
DX: K22.4 Dyskinesia of esophagus (principal); K43.6 Other and unspecified ventral hernia with obstruction, without gangrene; F12.90 Cannabis use, unspecified, uncomplicated; R10.13 Epigastric pain; G89.29 Other chronic pain; K21.9 Gastro-esophageal reflux disease without esophagitis; K59.09 Other constipation; M54.9 Dorsalgia, unspecified; R10.12 Left upper quadrant pain; R11.2 Nausea with vomiting, unspecified; R63.4 Abnormal weight loss; Z68.26 Body mass index [BMI] 26.0-26.9, adult
CPT/HCPCS: 74177; 78264; 80048; 80053; 81001; 83605; 83690; 84703; 85025; 88305; 88312; A9541; C9113; J2270; J2405; J2765; J7030; Q9963; Q9967